=== PATIENT | female | born 1995 | race Two or more races ===

== ENCOUNTER 2021-11-27 20:20 | Emergency (ER) | payer MEDICAID, OTHER ==
[~2021-11-27] VITALS: Ht 157.5 cm; Wt 129.7 kg
[2021-11-27] MEDS ORDERED: IBUPROFEN 800 MG TAB PO ONE (21:30)
[2021-11-27] MEDS ORDERED: HYDROcodone-ACET 5/325MG TAB PO ONE (21:30)
[2021-11-27] MEDS ORDERED: IBUP800T27 PO (22:06)
[2021-11-27] MEDS ORDERED: HYDR-4902 PO (22:06)
[2021-11-28 00:27] VITALS: BP 112/78
== END 2021-11-28 00:46 | disposition home or self-care (01) ==
LOC: ER 20:28
DX: S93.401A Sprain of unspecified ligament of right ankle, initial encounter (principal); W18.09XA Striking against other object with subsequent fall, initial encounter; Y93.89 Activity, other specified; Y92.89 Other specified places as the place of occurrence of the external cause; Y99.8 Other external cause status
CPT/HCPCS: 73610